=== PATIENT | male | born 1985 | race Caucasian/White ===

== ENCOUNTER 2021-05-01 10:16 | Emergency (ER) | payer OTHER ==
[~2021-05-01] VITALS: Ht 185.4 cm; Wt 118.7 kg
[2021-05-01] MEDS ORDERED: LOSA50TA88 PO (10:23)
[2021-05-01] MEDS ORDERED: INDO50CA91 PO (11:29)
[2021-05-01 11:37] VITALS: BP 137/88
== END 2021-05-01 11:37 | disposition home or self-care (01) ==
LOC: M ED 10:16
DX: M76.61 Achilles tendinitis, right leg (principal); M76.62 Achilles tendinitis, left leg; I10 Essential (primary) hypertension